=== PATIENT | female | born 1995 | race Caucasian/White ===

== ENCOUNTER 2018-01-19 11:21 | Emergency (ER) | payer BC ==
[2018-01-19 11:57] VITALS: BP 117/78
[2018-01-19] MEDS ORDERED: Amoxicillin PO (*) 500 MG CAP PO ONE (12:25)
--- NOTE | 2018-01-19 12:25 | UC ---
UC General HPI - HPI Summary HPI Summary: Patient is complaining of sore throat and pain with swallow since last evening. She is uncertain if she has fever. She denies any associated nasal congestion and cough and has no other complaints. - History of Current Complaint Chief Complaint: UCRespiratory Stated Complaint: SORE THROAT Time Seen by Provider: 01/19/18 12:14 Hx Obtained From: Patient Hx Last Menstrual Period: MIRENA IUD Onset/Duration: Gradual Onset Timing: Constant Pain Intensity: 6 Alleviating: Nothing - Allergy/Home Medications Allergies/Adverse Reactions: Allergies Allergy/AdvReac Type Severity Reaction Status Date / Time No Known Allergies Allergy Verified 01/19/18 11:52 Home Medications: Home Medications Levonorgestrel (Iud) [Mirena IUD] 1 implant ONCE 01/19/18 [History Confirmed ] PMH/Surg Hx/FS Hx/Imm Hx Previously Healthy: Yes - Surgical History Surgical History: Yes Surgery Procedure, Year, and Place: LEFT KNEE-6TH GRADE - Family History Known Family History: Positive: None - Social History Occupation: Student Alcohol Use: Occasionally Substance Use Type: None Smoking Status (MU): Never Smoked Tobacco - Immunization History Most Recent Tetanus Shot: UTD Vaccination Up to Date: Yes Review of Systems Constitutional: Negative Skin: Negative Eyes: Negative ENT: Sore Throat Respiratory: Negative Cardiovascular: Negative Gastrointestinal: Negative Genitourinary: Negative Motor: Negative Neurovascular: Negative Musculoskeletal: Negative Neurological: Negative Psychological: Negative Is Patient Immunocompromised?: No All Other Systems Reviewed And Are Negative: Yes Physical Exam Triage Information Reviewed: Yes Appearance: Well-Appearing Vital Signs: Initial Vital Signs Temp 98.1 F 01/19/18 11:53 Pulse 87 01/19/18 11:53 Resp 16 01/19/18 11:53 BP 117/78 01/19/18 11:53 Pulse Ox 100 01/19/18 11:53 Vital Signs Reviewed: Yes Eyes: Positive: Conjunctiva Clear ENT: Positive: Pharyngeal erythema, TMs normal, Tonsillar swelling, Tonsillar exudate, Uvula midline. Negative: Nasal congestion, Nasal drainage, Trismus, Muffled voice, Hoarse voice Neck: Positive: Supple, Tenderness @ - Peritonsillar nodes, Enlarged Nodes @ - Peritonsillar nodes Respiratory: Positive: Lungs clear, Normal breath sounds Cardiovascular: Positive: RRR, No Murmur Abdomen Description: Positive: Nontender, No Organomegaly, Soft Bowel Sounds: Positive: Present Musculoskeletal: Positive: ROM Intact Neurological: Positive: Alert Psychological: Positive: Age Appropriate Behavior Skin Exam: Normal Diagnostics - Laboratory Diagnostic Studies Completed/Ordered: Rapid strep is positive Course/Dx - Course Course Of Treatment: Nontoxic. No concern for peritonsillar abscess. Rapid strep screen is positive thus we'll treat with amoxicillin twice daily for 10 days. - Differential Dx - Multi-Symptom Provider Diagnoses: Strep throat Discharge - Sign-Out/Discharge Documenting (check all that apply): Patient Departure All imaging exams completed and their final reports reviewed: No Studies - Discharge Plan Condition: Stable Disposition: HOME Prescriptions: Amoxicillin PO (*) [Amoxicillin 500 MG CAP*] 500 mg PO Q12H 10 Days #20 cap Patient Education Materials: Strep Throat (DC) Referrals: Mirela Martínez NP [Primary Care Provider] - 7 Days - Billing Disposition and Condition Condition: STABLE Disposition: Home
[2018-01-19] MEDS ORDERED: Ibuprofen ADULT LIQ* 600 MG/30 ML UDC PO ONE (12:26)
== END 2018-01-19 12:39 | disposition home or self-care (01) ==
LOC: UCCORT 11:21
DX: J02.0 Streptococcal pharyngitis (principal)
CPT/HCPCS: 87651; 99212; A9270-GY; G0463

== ENCOUNTER 2018-06-23 21:21 | Emergency (ER) | payer BC ==
--- OUTSIDE RECORDS SUMMARY | 2018-06-23 21:29 | XMS REPORT | Continuity of Care Document ---
:1995 External Reference #:[id number] Author Name Dick Mcgarry MD Address [address] [place] [address] Care Team Providers Name Role Phone Weston Gillis MD Care Team Information [facility] Unavailable Carmen Wong MD Primary Care Physician Unavailable Payers Type Date Identification Numbers Payment Provider Subscriber Policy Number: [id number] [facility] Arvind Murillo Group Number: [id number] [address] PayID: [id number] [place] [address] Advance Directives Description No Information Available Problems Date Description Provider Status Onset: 06/10/2017 Anxiety state Mirela Martínez NP Active Onset: 06/10/2017 Unable to concentrate Mirela Martínez NP Active Onset: 05/10/2018 Streptococcal sore throat Cade Persaud MD Active Onset: 08/01/2014 Acute pharyngitis Cade Persaud MD Resolved Resolved: 10/20/2016 Onset: 09/05/2014 Acute sinusitis Weston Gillis MD Resolved Resolved: 10/20/2016 Onset: 09/05/2014 Otitis media Weston Gillis MD Resolved Resolved: 10/20/2016 Onset: 03/21/2016 Contusion of foot Cade Persaud MD Resolved Resolved: 10/20/2016 Onset: 03/21/2016 Injury of lower leg Cade Persaud MD Resolved Resolved: 10/20/2016 Family History Description No Information Available Social History Type Date Description Comments Sex Unknown Allergies, Adverse Reactions, Alerts Description No Known Drug Allergies Medications Medication Date Status Form Strength Qnty SIG Indications Ordering Provider Amoxicillin/Clavul 05/26 Active Tablets 875-125mg 20tab one by jovanny Batres s mouth Krista, twice a PA day for 10 days Methylprednisolone 05/26 Active TBPK 4mg 21uni taper as Giesl ts directed BRENDA Velasco Amphetamine-Dextro Active Caps ER 10mg 1 by Unknown amphet ER /0000 24HR mouth bid Mirena (52 MG) Active IUD 20mcg/24H Unknown /0000 R Work Note 05/18 Hx patient J02.0 Tanya was seen MICK Dietz - in our 05/19 office /2017 today Please excuse from work Amoxicillin 05/10 Hx Tablets 875mg 20tab one tab J02.0 Hung s twice a , - day x 10 Cade, 05/19 days Bupropion HCL ER 12/17 Hx Tablets ER 150mg 30tab 1 by Marvin (XL) 24HR s mouth MD Carmen - every day 05/20 Azithromycin 12/17 Hx Tablets 500mg 4tabs 4 by Marvin mouth x 1 MD Carmen - dose 05/10 No Active 11/29 Hx Unknown Medications - 12/17 Escitalopram 08/16 Hx Tablets 20mg 30tab 1 by Emmanuel Martínez s mouth Mirela, [employer] - every day 11/29 Sertraline HCL 06/10 Hx Tablets 50mg 30tab 1 by Emmanuel Martínez s mouth Mirela, [employer] - every day 08/16 Sertraline HCL 05/10 Hx Tablets 25mg 60tab 1 by Emmanuel Martínez s mouth Mirela, [employer] - every day 06/10 for week then 2 tabs daily next fill with 50 mg tabs Ferrous Sulfate 12/01 Hx Tablets 325(65Fe) 1 by Marvin mg kingston Morales MD - every day 11/29 Magnesium 27 10/20 Hx Tablets 500(27Mg) 30tab 1 by Marvin mg s mouth MD Carmen - every 11/29 Bactroban Nasal 10/20 Hx Ointment 2% 1gm apply Marvin twice a MD Carmen - day to 11/29 areas. No Active 03/21 Hx [place] Medications , - Cade, 10/20 MD Augmentin 09/05 Hx Tablets 875-125mg 20tab 1 by Carlin, s mouth Weston, - twice a Fluticasone 09/05 Hx Suspension 50mcg/Act 1unit 2 sprays Carlin s every day Weston, - x 2 then 1 spray every day No Active 08/23 Hx Ring, Brent Kim M.D. 09/05 Penicillin V 08/01 Hx Tablets 500mg 30tab 1 tab by Hung s mouth , - three Cade, 08/10 times a day Riboflavin Hx Capsules 50mg every day Unknown /0000 - 11/29 Medications Administered in Office Medication Date Status Form Strength Qnty SIG Indications Ordering Provider PPD Administered Injection Mirela Martínez, 8 [employer] Immunizations CPT Code Status Date Vaccine Lot # [id number] Given 04/17/2016 Hepatitis A, Ped/Adolescent 2 Dose Schedule 67560 Given 10/15/2015 Tdap (Adacel) Ages 7 And Above Only 83342 Given 10/15/2015 Hepatitis A, Ped/Adolescent 2 Dose Schedule 02513 Given 10/14/2014 Menactra/Menveo Meningococcal Vaccine 90878 Given 01/17/2009 Menactra/Menveo Meningococcal Vaccine 95784 Given 01/17/2009 Tdap (Adacel) Ages 7 And Above Only 86260 Given 12/13/2006 Varicella (Chicken Pox) Immunization 86165 Given 11/07/2002 IPV / Poliomyelitis Immunization 96471 Given 11/07/2002 MMR Virus Immunization 61013 Given 12/29/2001 DTaP Immunization 7 Yrs & Younger 27234 Given 06/12/1999 DTaP Immunization 7 Yrs & Younger 73425 Given 03/06/1999 IPV / Poliomyelitis Immunization 53056 Given 03/06/1999 Hib ACTHiB Vaccine 4 Dose Schedule 01547 Given 01/02/1999 MMR Virus Immunization 05315 Given 01/02/1999 Varicella (Chicken Pox) Immunization 03229 Given 08/29/1998 Hepatitis B Vac Ped/Adolescent 3 Dose Schedule 10272 Given 06/03/1998 DTaP Immunization 7 Yrs & Younger 51767 Given 06/03/1998 Hib ACTHiB Vaccine 4 Dose Schedule 93390 Given 03/28/1998 IPV / Poliomyelitis Immunization 39716 Given 03/28/1998 DTaP Immunization 7 Yrs & Younger 50322 Given 03/28/1998 Hib ACTHiB Vaccine 4 Dose Schedule 43470 Given 01/17/1998 Hepatitis B Vac Ped/Adolescent 3 Dose Schedule 32078 Given 01/17/1998 IPV / Poliomyelitis Immunization 54313 Given 01/17/1998 DTaP Immunization 7 Yrs & Younger 80560 Given 01/17/1998 Hib ACTHiB Vaccine 4 Dose Schedule 21806 Given 1997 Hepatitis B Vac Ped/Adolescent 3 Dose Schedule Vital Signs Date Vital Result Comment 05/26/2018 8:36am Body Temperature 98.0 F Weight 136.00 lb Heart Rate 87 /min BP Systolic 108 mmHg BP Diastolic 70 mmHg Height 63 inches 5'3" O2 % BldC Oximetry 98 % BMI (Body Mass Index) 24.1 kg/m2 05/18/2018 11:16am Body Temperature 98.0 F Weight 137.00 lb Heart Rate 76 /min BP Systolic 120 mmHg BP Diastolic 80 mmHg Height 63 inches 5'3" BMI (Body Mass Index) 24.3 kg/m2 05/10/2018 11:25am Body Temperature 98.1 F Weight 132.00 lb Heart Rate 89 /min BP Systolic 114 mmHg BP Diastolic 76 mmHg Respiratory Rate 12 /min Height 63 inches 5'3" BMI (Body Mass Index) 23.4 kg/m2 12/17/2017 9:18am Body Temperature 98.3 F Weight 139.00 lb Heart Rate 82 /min BP Systolic 110 mmHg BP Diastolic 72 mmHg Height 64 inches 5'4" BMI (Body Mass Index) 23.9 kg/m2 Right Visual Acuity Distance 20/25 OU-20/25, Color-Passed, Without Glasses Left Visual Acuity Distance 20/25 11/29/2017 5:49pm Heart Rate 78 /min BP Systolic 122 mmHg BP Diastolic 78 mmHg Respiratory Rate 18 /min 08/16/2017 1:57pm Body Temperature 98.5 F Weight 135.25 lb Weight Percentile 63rd Heart Rate 68 /min BP Systolic 128 mmHg BP Diastolic 82 mmHg Height 63.5 inches 5'3.50" Height Percentile 38 % BMI (Body Mass Index) 23.6 kg/m2 Body Mass Index Percentile 69 % 06/10/2017 9:21am Body Temperature 98.2 F Weight 132.12 lb Weight Percentile 58th Heart Rate 64 /min BP Systolic 122 mmHg BP Diastolic 78 mmHg 05/25/2017 6:34pm Body Temperature 98.7 F Heart Rate 81 /min BP Systolic 112 mmHg BP Diastolic 65 mmHg Respiratory Rate 17 /min 05/10/2017 9:57am Body Temperature 98.7 F Weight 131.12 lb Weight Percentile 57th Heart Rate 76 /min BP Systolic 100 mmHg BP Diastolic 64 mmHg Height 63.5 inches 5'3.50" Height Percentile 38 % BMI (Body Mass Index) 22.9 kg/m2 Body Mass Index Percentile 64 % 11/27/2016 9:09am Body Temperature 98.1 F Weight 135.00 lb Heart Rate 78 /min BP Systolic 120 mmHg BP Diastolic 80 mmHg Height 63.5 inches 5'3.50" BMI (Body Mass Index) 23.5 kg/m2 Body Mass Index Percentile 70 % 10/20/2016 10:30am Body Temperature 97.8 F Weight 127.12 lb Weight Percentile 52nd Heart Rate 76 /min BP Systolic 120 mmHg BP Diastolic 78 mmHg Height 63.5 inches 5'3.50" Height Percentile 38 % BMI (Body Mass Index) 22.2 kg/m2 Body Mass Index Percentile 58 % Right Visual Acuity Distance 20/20 OU 20/20 not corrected Left Visual Acuity Distance 20/20 07/13/2016 10:14am Body Temperature 97.8 F Weight 130.00 lb Weight Percentile 59th Heart Rate 88 /min BP Systolic 114 mmHg BP Diastolic 74 mmHg Respiratory Rate 18 /min Height 64 inches 5'4" Height Percentile 46 % O2 % BldC Oximetry 98 % BMI (Body Mass Index) 22.3 kg/m2 Body Mass Index Percentile 60 % 03/21/2016 3:11pm Body Temperature 98.0 F Weight 130.00 lb Weight Percentile 60th Heart Rate 60 /min BP Systolic 116 mmHg BP Diastolic 72 mmHg 09/05/2014 9:13am Body Temperature 98.0 F Weight 120.00 lb Weight Percentile 48th Heart Rate 52 /min BP Systolic 102 mmHg BP Diastolic 66 mmHg Respiratory Rate 18 /min Height 64 inches 5'4" Height Percentile 48 % BMI (Body Mass Index) 20.6 kg/m2 Body Mass Index Percentile 48 % 08/23/2014 8:12pm Body Temperature 98.1 F Weight 121.00 lb Weight Percentile 50th Heart Rate 75 /min BP Systolic 123 mmHg BP Diastolic 81 mmHg Respiratory Rate 16 /min Height 64 inches 5'4" Height Percentile 48 % BMI (Body Mass Index) 20.8 kg/m2 Body Mass Index Percentile 50 % Right Visual Acuity Distance 20/20 Left Visual Acuity Distance 20/20 08/01/2014 9:13am Body Temperature 97.2 F Weight 129.00 lb Weight Percentile 31st Heart Rate 72 /min BP Systolic 109 mmHg BP Diastolic 53 mmHg Respiratory Rate 16 /min Height 64 inches 5'4" Height Percentile 5 % BMI (Body Mass Index) 22.1 kg/m2 Body Mass Index Percentile 65 % Results Test Date Facility Test Result H/L Range Note Laboratory 05/18/20 [facility] Throat Microbiology 1 test finding 18 Culture res <SEE NOTE> Laboratory 05/10/20 [facility] 1 Strep Positive Negative test finding 18 Screen (In-House) GC/Chlamydia 12/18/19 [facility] Chlamydia by POSITIVE Abnormal Negative By Dna Probe 18 Dna Probe GC by Dna Probe NEGATIVE Negative Nubia Screen With Reflex-FCMG 11/27/2016 [facility] Nubia Screen NEGATIVE dsDNA IgG NEGATIVE Laboratory test 11/27/2016 [facility] Thyroglobulin AutoAB Negative Negative finding Thyroid Peroxidase Antibody Negative Negative Laboratory test finding 11/27/2016 [facility] Ferritin 10.9 ng/ml Low 11.0- 306.0 TSH 1.03 uIU/mL 0.35-4.94 Vitamin B12 321 pg/mL 180-914 Free T4 1.14 ng/dL 0.70-1.48 T3,Free 3.08 pg/mL 1.71-3.71 Esr 4 mm/hr 0-20 CPK 89 U/L 12-199 Laboratory test 11/27/2016 Done [facility] 1 Preg Urine negative Negative finding (In-House) Laboratory test 10/20/2016 Done [facility] 1 Preg Urine negative Negative finding (In-House) CBC With Auto Diff 10/20/2016 [facility] WBC 5.3 K/uL 4.1-11.0 RBC 4.57 M/uL 4.00-5.40 Hemoglobin 13.3 gm/dL 12.0-16.0 Hematocrit 39.5 % 36.0-47.0 MCV 86.4 fL 80.0-97.0 MCH 29.0 pg 27.0-32.0 MCHC 33.6 g/dL 32.0-36.0 RDW 13.2 % 11.5-14.5 PLT Count 194 K/ul 140-400 Neutrophil 63.8 % 35.0-75.0 Lymphocyte 28.2 % 16.0-52.0 Monocyte 6.7 % 2.0-10.0 Eosinophil 0.9 % 0.0-5.0 Basophil 0.4 % 0.0-4.0 Abs Neutrophils 3.3 K/uL 2.1-8.0 Abs Lymphocytes 1.5 K/uL 0.8-5.5 Abs Monocytes 0.3 K/uL 0.1-1.0 Abs Eosinophils 0.0 K/uL 0.0-0.5 Abs Basophils 0.0 K/uL 0.0-0.3 [facility] test [facility]Neg[facility] 2 Poct i-Stat BHCG 09/24/2016 N2N/CCD Import i-Stat BHCG <5 <5 Iu/L Basic Metabolic Panel 09/23/2016 N2N/CCD Import Anion Gap 13 mmol/L 7 - 16 BUN/Cre Ratio 19.0 Ratio 10.0 - 20.0 Bicarbonate 27 mmol/L 22 - 31 Blood Urea Nitrogen 16 mg/dL 7 - 24 Calcium 9.3 mg/dL 8.4 - 10.2 Chloride 103 mmol/L 100 - 108 Creatinine 0.84 mg/dL 0.60 - 1.00 GFR >60 >59 ml/min/1.73m2 GFR Interpretation See Notes GFR Non- >60 >59 ml/min/1.73m2 Glucose 124 mg/dL High 70 - 99 Potassium 4.3 mmol/L 3.6 - 5.2 Sodium 143 mmol/L 136 - 145 CBC and Differential 09/23/2016 N2N/CCD Import Abs Basophil 0.0 10*3/uL 0.0 - 0.2 Abs Eosinophil 0.0 10*3/uL 0.0 - 0.5 Abs Lymphocyte 1.8 10*3/uL 1.2 - 4.8 Abs Monocyte 0.6 10*3/uL 0.0 - 0.8 Abs Neutrophil 8.2 10*3/uL High 1.8 - 7.7 Basophil 0.3 % 0.0 - 4.0 Eosinophil 0.1 % 0.0 - 5.0 Hematocrit 36.2 % 36.0 - 47.0 Hemoglobin 12.4 g/dL 12.0 - 16.0 Lymphocyte 16.5 % 16.0 - 52.0 Mean Cell Hemoglobin 29.2 pg 27.0 - 32.0 Mean Cell Hgb Conc 34.2 g/dL 32.0 - 36.0 Mean Cell Volume 85.3 fL 80.0 - 95.0 Mean Platelet Volume 8.5 fL 7.1 - 10.7 Monocyte 5.8 % 0.0 - 8.0 Neutrophil 77.3 % High 35.0 - 75.0 Platelet Count 177 10*3/uL 150 - 450 Red Blood Cell 4.25 10*6/uL 4.00 - 5.40 Red Cell Dist Width 14.2 % 10.5 - 14.5 White Blood Cell 10.6 10*3/uL 4.1 - 11.0 , urine 08/23/2014 N2N/CCD Import HCG, Urine Negative Negative (cc) Qualitative Laboratory test 08/01/2014 [facility] 1 Strep Screen Negative Negative finding (In-House) 1 Microbiology results RESULT Normal throat rohan.No beta hemolytic streptococci isolated. 2 THIS IS A SCREENING TEST. IT IS RECOMMENDED THAT A POSITIVE RESULT BE FOLLOWED-UP WITH HEMOGLOBIN EVALUATION BY HPLC. THIS TEST IS NOT APPROPRIATE FOR SCREENING IN THE SETTING. PERFORMED AT [address] [place] [id number] Unless otherwise specified, testing performed by [facility] [address] [place] [id number] Procedures Date Code Description Status 08/16/2017 99696 Computerized Testing Completed Encounters Type Date Location Provider Dx Diagnosis Office Visit 05/18/2018 Mirela Travis NP J02.0 Streptococcal 11:15a pharyngitis Z11.1 Encounter for screening for respiratory tuberculosis Office Visit 05/10/2018 [facility] J02.0 Streptococcal 11:00a Nolan Mohamud MD pharyngitis Office Visit 12/17/2017 Carmen Lopes, F43.23 Adjustment disorder 9:15a Office with mixed anxiety and depressed mood Z00.00 Encntr for general adult medical exam w/o abnormal findings Office Visit 11/29/2017 5:25p [facility] Weston Gillis M79.661 Pain in RIGHT West lower leg M79.662 Pain in LEFT lower leg Office Visit 08/16/2017 1:45p [place] [facility] TanyaJacklyni, F41.9 Anxiety disorder, [employer] unspecified F43.23 Adjustment disorder with mixed anxiety and depressed mood Office Visit 06/10/2017 9:00a [place] [facility] TanyaJacklyni, F41.9 Anxiety disorder, [employer] unspecified Office Visit 05/25/2017 5:20p [facility] Delmi Beebe J06.9 Acute upper Nolan Hannah respiratory infection, unspecified Office Visit 05/10/2017 9:30a [place] [facility] Tanya Mirela, F41.9 Anxiety disorder, [employer] unspecified N93.9 Abnormal uterine and vaginal bleeding, unspecified Office Visit 11/27/2016 9:00a [place] [facility] Carmen Wong, L65.9 Nonscarring hair MD loss, unspecified M79.1 Myalgia R53.83 Other fatigue Office Visit 10/20/2016 10:30a [place] [facility] Carmen Wong, Z00.00 Encntr for general adult medical exam w/o abnormal findings R21 Rash and other nonspecific skin eruption Office Visit 07/13/2016 9:55a [facility] Carlin J06.9 Acute upper Nolan Ontiveros MD respiratory infection, unspecified Office Visit 03/22/2016 2:30p [facility] S99.911D Unspecified Nolan Mohamud MD injury of RIGHT ankle, subsequent encounter Office Visit 03/21/2016 3:05p [facility] S90.31xA Contusion of Nolan Mohamud MD RIGHT foot, initial encounter S99.911A Unspecified injury of RIGHT ankle, initial encounter Office Visit 09/05/2014 9:05a [facility] Weston Gillis, 461.8 Sinusitis Acute Nolan BABIN Other 382.9 Otitis Media Unspec Office Visit 08/23/2014 7:55p [facility] Judy Win, 784.0 Headache Nolan Hannah Office Visit 08/01/2014 9:00a [facility] 462 Pharyngitis Acute Nolan Mohamud MD Plan of Treatment 05/26/2018 - Krista Batres, BRENDAJ31.2 Chronic pharyngitisComments:patient reports years of strep pharyngitis increasing the last few years, now that she is away at college. She reports 5 episodes at least over the last few years. today she is feeling well however tonsils still appear erythematous, swollen, muliptle tonsiliths. She is interested in tonsillectomy.Discussed indications and risks associated with this. She would not be able to do this until summerdue to school. We will treat at this time with augmentin and medrol to see if we can break the cycleof infection as she has not had anything more then amoxil in the past. We will follow-up in september [address] Mcgarry to discuss surgery.AllNew Medication:Amoxicillin/Clavulanate Potassium 875-125 mg - one by mouth twice a day for 10 daysMethylprednisolone 4 mg - taper as directedFollow up:september [address] Mcgarry tonshussain.
[2018-06-23 21:33] VITALS: BP 122/75
--- NOTE | 2018-06-23 21:33 | UC ---
Ear Complaint HPI - HPI Summary HPI Summary: 3 hrs of L ear pain w/ no other symptoms. has not taken any thing for this. denies putting anything in ears. - History of Current Complaint Stated Complaint: LEFT EARACHE Time Seen by Provider: 06/23/18 21:22 Hx Obtained From: Patient Hx Last Menstrual Period: MIRENA IUD - Allergies/Home Medications Allergies/Adverse Reactions: Allergies Allergy/AdvReac Type Severity Reaction Status Date / Time No Known Allergies Allergy Verified 06/23/18 21:33 PMH/Surg Hx/FS Hx/Imm Hx Previously Healthy: Yes - Surgical History Surgical History: Yes Surgery Procedure, Year, and Place: LEFT KNEE-6TH GRADE - Family History Known Family History: Positive: None - Social History Alcohol Use: Occasionally Substance Use Type: None Smoking Status (MU): Never Smoked Tobacco - Immunization History Most Recent Tetanus Shot: UTD Vaccination Up to Date: Yes Review of Systems All Other Systems Reviewed And Are Negative: Yes Constitutional: Positive: Negative. Negative: Fever Skin: Negative: Rash ENT: Positive: Ear Ache - L side x 3 hrs. Negative: Sore Throat, Nasal Discharge, Sinus Congestion Respiratory: Positive: Negative Cardiovascular: Positive: Negative Physical Exam Triage Information Reviewed: Yes Appearance: Well-Appearing Vital Signs Reviewed: Yes ENT: Positive: Pharynx normal, TMs normal - R TM NL, TM red - L. Negative: Nasal congestion, TM bulging, TM dull Ear Complaint Course/Dx - Course Course Of Treatment: L ear pain x3 hrs. ON exam TM a little erythematous but no indication for antibx. Will tx pain today w/ ibuprofen. advised to f/u in 1- 3 days to re-evaluate ear or if new symptoms develop. - Differential Dx/Diagnosis Differential Diagnosis/HQI/PQRI: Otitis Externa, Otitis Media, URI Provider Diagnosis: Ear pain, left Discharge - Sign-Out/Discharge Documenting (check all that apply): Patient Departure All imaging exams completed and their final reports reviewed: No Studies - Discharge Plan Condition: Good Disposition: HOME Patient Education Materials: Earache (ED) Referrals: Mirela Martínez NP [Primary Care Provider] - Additional Instructions: If symptoms persist please follow up with pcp if symptoms persist. - Billing Disposition and Condition Condition: GOOD Disposition: Home
[2018-06-23] MEDS ORDERED: Ibuprofen TAB* 600 MG PO ONE (21:42)
== END 2018-06-23 21:52 | disposition home or self-care (01) ==
LOC: UCCORT 21:21
DX: H92.02 Otalgia, left ear (principal); Z97.5 Presence of (intrauterine) contraceptive device; H73.92 Unspecified disorder of tympanic membrane, left ear
CPT/HCPCS: 99212; A9270-GY; G0463

== ENCOUNTER 2018-07-21 20:48 | Emergency (ER) | payer BC ==
[2018-07-21 21:07] VITALS: BP 119/67
--- NOTE | 2018-07-21 21:07 | UC ---
Skin Complaint HPI - HPI Summary HPI Summary: Patient was wearing an ill fitting bra. now has chaffing under both arms. she aslo has been really bloated and is not sure if it is from the IUD, she is going to get her period or if possible . - History of Current Complaint Stated Complaint: SKIN CONCERN Hx Obtained From: Patient Hx Last Menstrual Period: MIRENA IUD ?: No Onset/Duration: Sudden Onset, Lasting Days Skin Exposure Onset/Duration: Days Ago Timing: Constant Onset Severity: Mild Current Severity: Mild - Allergy/Home Medications Allergies/Adverse Reactions: Allergies Allergy/AdvReac Type Severity Reaction Status Date / Time No Known Allergies Allergy Verified 07/21/18 21:07 Home Medications: Home Medications Dextroamphetamine/Amphetamine [Adderall 10 mg Tablet] 10 mg PO BID 07/21/18 [ History Confirmed 07/21/18] PMH/Surg Hx/FS Hx/Imm Hx Previously Healthy: Yes - Surgical History Surgical History: Yes Surgery Procedure, Year, and Place: LEFT KNEE-6TH GRADE - Family History Known Family History: Positive: None Negative: Cardiac Disease, Hypertension - Social History Alcohol Use: Occasionally Substance Use Type: None Smoking Status (MU): Never Smoked Tobacco - Immunization History Most Recent Tetanus Shot: UTD Vaccination Up to Date: Yes Review of Systems All Other Systems Reviewed And Are Negative: Yes Constitutional: Positive: Negative Skin: Positive: Rash Eyes: Positive: Negative ENT: Positive: Negative Respiratory: Positive: Negative Cardiovascular: Positive: Negative Gastrointestinal: Positive: Other - bloating Genitourinary: Positive: Negative Motor: Positive: Negative Neurovascular: Positive: Negative Musculoskeletal: Positive: Negative Neurological: Positive: Negative Psychological: Positive: Negative Is Patient Immunocompromised?: No Physical Exam Triage Information Reviewed: Yes Appearance: Well-Appearing, Well-Nourished, Pain Distress Vital Signs Reviewed: Yes Eye Exam: Normal ENT Exam: Normal Dental Exam: Normal Neck exam: Normal Respiratory Exam: Normal Respiratory: Positive: Chest non-tender, Lungs clear, Normal breath sounds Cardiovascular Exam: Normal Cardiovascular: Positive: RRR, No Murmur, Pulses Normal Musculoskeletal Exam: Normal Neurological Exam: Normal Psychological Exam: Normal Skin Exam: Normal Course/Dx - Course Course Of Treatment: hx obtained, exam performed, educated on how to prefent chaffing. and patient requesting a test due to some bloating she does have an IUD in place. - Differential Diagnoses - Skin Complaint Differential Diagnoses: Contact Dermatitis, Tinea - Diagnoses Provider Diagnosis: Chafing, Bloating Discharge - Sign-Out/Discharge Documenting (check all that apply): Patient Departure All imaging exams completed and their final reports reviewed: No Studies - Discharge Plan Condition: Stable Disposition: HOME Referrals: Mirela Martínez NP [Primary Care Provider] - Additional Instructions: 1. use the bacitracin twice a day for the next 3 days 2. baby podwer under the arms once healed will help prevent it from occurring again. - Billing Disposition and Condition Condition: STABLE Disposition: Home - Attestation Statements Provider Attestation: Because the patient is A&Ox3, has no focal neurologic findings, no midline c- spine tenderness, no evidence of intoxication and no painful distracting injuries there is no need to obtain radiographic studies to evaluate the C- spinie.
== END 2018-07-21 21:30 | disposition home or self-care (01) ==
LOC: UCCORT 20:48
DX: L30.4 Erythema intertrigo (principal); R14.0 Abdominal distension (gaseous); Z97.5 Presence of (intrauterine) contraceptive device
CPT/HCPCS: 84702; 99212; G0463